=== PATIENT | female | born 1960 | race American Indian/Alaskan Native ===

== ENCOUNTER 2018-05-22 07:01 | Day surgery (SDC) | payer BC ==
[2018-05-21 12:32] VITALS: BMI 19.3
[2018-05-22] MEDS ORDERED: Lactated Ringer's 500 ML IV ONE (08:42)
[2018-05-22] MEDS ORDERED: Propofol 10 mg/ml Inj (20 ML) ONE (08:43)
[2018-05-22 08:49] VITALS: O2SAT 100
[2018-05-22 09:19] VITALS: TEMP 98.5
[2018-05-22 09:29] VITALS: RESP 12
[2018-05-22 09:48] VITALS: BP 122/71; PULSE 60
== END 2018-05-22 10:10 | disposition home or self-care (01) ==
LOC: C.ENDO 07:01
PROVIDERS: ATTEND Internal Medicine Gastroenterology
DX: Z12.11 Encounter for screening for malignant neoplasm of colon (principal); K64.8 Other hemorrhoids
CPT/HCPCS: 45378; J2704; J7120